=== PATIENT | female | born 1990 | race African-American/Black ===

== ENCOUNTER 2019-03-04 19:34 | Emergency (ER) | payer SELFPAY ==
[~2019-03-04] VITALS: Ht 152.4 cm; Wt 86.2 kg
[2019-03-04 19:40] VITALS: BP 129/76
--- NOTE | 2019-03-04 20:05 | PHYS DOC ---
Past Medical History Past Medical History: No Pertinent History Past Surgical History: No Surgical History Adult General Chief Complaint Chief Complaint: ANKLE PROBLEM HPI HPI Patient is a 28 year old female who presents with right ankle injury. she was playing tag with her kids, came down a slid, at the bottom jumped up to get up and lost balance, fell and twisted the right ankle. [place] a pop. 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 c/o right ankle pain and swelling Integument: Denies rash or skin lesions [] Neurologic: Denies headache, focal weakness or sensory changes [] Endocrine: Denies polyuria or polydipsia [] All other systems were reviewed and found to be within normal limits, except as documented in this note. Current Medications Current Medications Current Medications Medications (Trade) Dose Ordered Sig/Bacilio Start Time Stop Time Status Last Admin Dose Admin Acetaminophen/ Hydrocodone Bitart (Lortab 5/325) 1 tab 1X ONCE 03/04/19 20:30 03/04/19 20:31 DC 03/04/19 20:17 1 TAB Ibuprofen (Motrin) 200 mg STK-MED ONCE 03/04/19 20:14 03/04/19 20:14 DC Allergies Allergies Allergies Coded Allergies Type Severity Reaction Last Updated Verified No Known Drug Allergies 03/04/19 No NKDA Physical Exam Physical Exam Constitutional: Well developed, well nourished, no acute distress, non-toxic appearance. [] HENT: Normocephalic, atraumatic, bilateral external ears normal, oropharynx moist, no oral exudates, nose normal. [] Eyes: PERRLA, EOMI, conjunctiva normal, no discharge. [] Neck: Normal range of motion, no tenderness, supple, no stridor. [] Cardiovascular:Heart rate regular rhythm, no murmur [] Lungs & Thorax: Bilateral breath sounds clear to auscultation [] Skin: Warm, dry, no erythema, no rash. [] Back: No tenderness, no CVA tenderness. [] Extremities: no cyanosis, no clubbing. diffuse TTP of the right ankle, diffuse moderate swelling to the ankle, lateral and medical. No wounds. Intact pulses and distal cap refill. Limited ROM of the right ankle due to pain. No pain proximal at the knee or hip Neurologic: Alert and oriented X 3, normal motor function, normal sensory function, no focal deficits noted. [] Psychologic: Affect normal, judgement normal, mood normal. [] Current Patient Data Vital Signs Vital Signs Date Time Temp Pulse Resp B/P (MAP) Pulse Ox O2 Delivery O2 Flow Rate FiO2 03/04/19 20:17 18 99 Room Air 03/04/19 19:40 97.6 91 129/76 (93) 97.6 EKG EKG [] Radiology/Procedures Radiology/Procedures xray right ankle: acute fracture distal TIB FIB OCL and crutches, NV intact, verified by me[] Impressions: Acute right distal TIB FIB fractures, closed Course & Med Decision Making Course & Med Decision Making Pertinent Labs and Imaging studies reviewed. (See chart for details) []right ankle injury Obvious swelling Motrin and Stevinson Xray right ankle: acute distal TIB FIB fractures Discussed with Ortho, Dr Hidalgo, he was able to review xray, will need surgical repair OCL and crutches, non weight bearing Stevinson for pain, call office tomorrow and will plan for surgery 03/06 Patient in agreement with plan of care, educated on home care fu and reasons to return to the ER Speedy Disclaimer Speedy Disclaimer This electronic medical record was generated, in whole or in part, using a voice recognition dictation system. Departure Departure Impression: Primary Impression: Closed fracture of distal end of right fibula and tibia Disposition: HOME, SELF-CARE Condition: STABLE Referrals: NO PCP (PCP) ISIAH HIDALGO MD Patient Instructions: Ankle Fracture, [id number] Additional Instructions: Fracture of distal tibia and fibula I spoke with Dr Hidalgo Call his office in the morning, he wants to see you tomorrow and plan for surgery on Tuesday Do not put any pressure or weight on this leg Ice and elevate Motrin and Stevinson as prescribed for pain Return for any concerns or worsening symptoms Scripts Hydrocodone/Apap 5-325 (NORCO 5-325 TABLET) 1 Each Tablet 1-2 TAB PO Q4-6HRS, #20 TAB Prov: DION OLVERA APRN 03/04/19 DION OLVERA APRN Mar 04, 2019 20:05
[2019-03-04] MEDS ORDERED: IBUPROFEN 200 MG TABLET. PO ONE ×2 (20:14→20:30)
[2019-03-04] MEDS ORDERED: IBUPROFEN 400 MG TABLET. PO ONE (20:14)
[2019-03-04] MEDS ORDERED: HYDROcodone/APAP 5/325MG 1 TAB TABLET PO ONE (20:30)
[2019-03-04] MEDS ORDERED: HYDR-3164 PO (20:55)
--- NOTE | 2019-03-05 00:52 | RAD ---
Indication:Fall. Pain. TECHNIQUE: 3 views of the right ankle COMPARISON:None FINDINGS: Oblique minimally displaced fracture is seen through the distal fibula with extension to the ankle mortise. Significant Ankle soft tissue edema. There is no widening of the ankle mortise. Questionable fracture of the posterior inferior corner of the tibia. IMPRESSION: As above. Electronically signed by: Thanh Lopes DO (03/05/2019 12:50 AM) [facility]
[2019-03-06] MEDS ORDERED: ALBU2.5V8 INH (08:21)
[2019-03-06] MEDS ORDERED: OXYC1TAB19 PO (13:23)
== END 2019-03-04 21:25 | disposition home or self-care (01) ==
LOC: ER 19:34
DX: S82.301A Unspecified fracture of lower end of right tibia, initial encounter for closed fracture (principal); S82.831A Other fracture of upper and lower end of right fibula, initial encounter for closed fracture; X50.9XXA Other and unspecified overexertion or strenuous movements or postures, initial encounter; Y93.89 Activity, other specified; Y92.89 Other specified places as the place of occurrence of the external cause; Y99.8 Other external cause status
CPT/HCPCS: 29515; 73610; 99284

== ENCOUNTER 2019-03-06 10:58 | Day surgery (SDC) | payer BC ==
[~2019-03-06] VITALS: Ht 154.9 cm; Wt 81.7 kg
[~2019-03-06 10:58] MED LIST: ALBU2.5V8 INH; HYDR-3164 PO
[2019-03-06] MEDS ORDERED: IV RINGERS,LACTATED 1000ML 1,000 ML IV SCH ×2 (11:45→14:11)
[2019-03-06] MEDS ORDERED: SEVOFLURANE 61 TO 120 MINUTES. IH ONE (12:16)
[2019-03-06] MEDS ORDERED: ONDANSETRON PF 4 MG/2 ML VIAL. ONE (12:17)
[2019-03-06] MEDS ORDERED: KETOROLAC 30 MG/ML VIAL. ONE (12:17)
[2019-03-06] MEDS ORDERED: DEXAMETHASONE SOD PHOS 4 MG/ML VIAL ONE (12:17)
[2019-03-06] MEDS ORDERED: LIDOCAINE 2% PF 5 ML VIAL. ONE (12:17)
[2019-03-06] MEDS ORDERED: PROPOFOL 20 ML IV ONE (12:17)
[2019-03-06] MEDS ORDERED: fentaNYL PF VIAL 100 MCG/2 ML VIAL ONE ×2 (12:17→15:41)
[2019-03-06] MEDS ORDERED: MIDAZOLAM HCL/PF 2 MG/2 ML VIAL. ONE (12:17)
[2019-03-06] MEDS ORDERED: ceFAZolin 2GM PREMIX 2 GM/50 ML BAG IV ONE (13:00)
[2019-03-06] MEDS ORDERED: OXYC1TAB19 PO (13:23)
--- NOTE | 2019-03-06 13:26 | DISCH ---
DISCHARGE INSTRUCTIONS Condition on Discharge Condition on Discharge: Stable Activity After Discharge Activity Instructions for Disc: Other, see below (nonweightbearing right leg with crutches knee scooter walker or other support) Weight Bearing Status after Di: Non weight bearing Diet after Discharge Diet after Discharge: Regular Wound Incision Care Wound/Incision Care: Ice to area for comfort, Keep wound elevated (elevate wound as much as possible), Do not change dressing (keep splint clean dry intact cover in shower) Contacting the [facility] after DC Call your doctor for: Concerns you may have Follow-Up Follow up with: Dr. Hidalgo 2 weeks ISIAH HIDALGO MD Mar 06, 2019 13:26
[2019-03-06] MEDS ORDERED: BUPIVACAINE MPF 0.5% 30 ML VIAL. ONE (14:14)
[2019-03-06] MEDS ORDERED: fentaNYL PF VIAL 100 MCG/2 ML VIAL IV PRN (14:15)
[2019-03-06] MEDS ORDERED: PROCHLORPERAZINE 10 MG/2 ML VIAL. IV PRN (14:15)
[2019-03-06] MEDS ORDERED: MORPHINE SULFATE 2 MG/ML VIAL. IV PRN (14:15)
[2019-03-06] MEDS ORDERED: ONDANSETRON PF 4 MG/2 ML VIAL. IV PRN (14:15)
[2019-03-06] MEDS ORDERED: HYDROmorphone 2 MG/ML VIAL IV PRN (14:15)
[2019-03-06] MEDS ORDERED: ESMOLOL 100 MG/10 ML VIAL. IVP ONE (14:19)
--- NOTE | 2019-03-06 15:08 | PDOC4 ---
Operative Note Operative Note Date of surgery: 03/06/2019 Preoperative diagnosis: Bimalleolar right ankle fracture (lateral and posterior malleolar) with lateral talar shift Postoperative diagnosis: Same Operative procedure: Operative reduction internal fixation lateral malleolus portion of bimalleolar (lateral plus posterior malleolar) ankle fracture Surgeon: Rocky Assist: Joy Anesthesia: Gen. Estimated blood loss: 15 mL Complications: None Operative indications: Please see my clinic note of yesterday for detailed operative indications and note that I reviewed with the patient the possibility of infection nonhealing prominent hardware stiffness continued pain nerve or blood vessel damage medical or other anesthetic competitions among others and we covered the likely minimal six-week nonweightbearing expected timeframe depending on healing. All her questions were answered she wishes to proceed with surgical evaluation and treatment. Operative text: Patient was identified procedure verified patient placed in the supine position on the operating table. After adequate amounts of general anest hesia were administered the right lower extremity was prepped and draped in standard sterile fashion with a thigh tourniquet. After timeout was performed patient procedure identified and verified the right lower extremity was exsanguinated by Esmarch bandage tourniquet inflated to 350 mmHg a lateral incision was made over the distal fibula and subperiosteal dissection was carried out. Fibula was reduced under fluoroscopic guidance and a 8 hole Jenna stainless steel distal fibular locking plate was contoured and placed with a single nonlocking shaft screw to locate the plate and a mortise view of the ankle revealed satisfactory mortise reduction. Distal locking screws 2.7 of appropriate length were placed and the remainder of shaft screws were placed likewise under fluoroscopic guidance. Anatomic reduction of the ankle joint mortise as well as the posterior malleolus were noted no fixation of the posterior malleolus was therefore necessary. Thorough irrigation carried out normal saline solution subcutaneous closure with buried Vicryl suture skin closure with jasmine a well-padded posterior Ortho-Glass splint was placed toes were noted be warm pink find deflation of tourniquet patient was returned recovery room in stable condition having tolerated procedure well ISIAH MESA MD Mar 06, 2019 15:08
[2019-03-06] MEDS ORDERED: oxyCODONE/APAP 7.5/325 1 TAB TABLET PO ONE (15:45)
[2019-03-06] MEDS: fentaNYL PF VIAL 100 MCG/2 ML VIAL IV PRN ×2 (15:46→15:57)
[2019-03-06 16:05] VITALS: BP 145/80
[2019-03-06] MEDS ORDERED: PROCHLORPERAZINE 10 MG/2 ML VIAL. ONE (16:08)
== END 2019-03-06 17:25 | disposition home or self-care (01) ==
LOC: SURG 10:58
PROVIDERS: ATTEND Orthopaedic Surgery
DX: S82.831A Other fracture of upper and lower end of right fibula, initial encounter for closed fracture (principal); F32.9 Major depressive disorder, single episode, unspecified; J45.909 Unspecified asthma, uncomplicated; Z98.890 Other specified postprocedural states; Z72.89 Other problems related to lifestyle; X58.XXXA Exposure to other specified factors, initial encounter; Y93.89 Activity, other specified; Y92.89 Other specified places as the place of occurrence of the external cause; Y99.8 Other external cause status
CPT/HCPCS: 27792; 76000; 81025; 97116; 97162; A7015; C1713; J0696; J0780; J1100; J1885; J2001; J2250; J2405; J2704; J3010; J3490; J7120